=== PATIENT | female | born 1970 | race Caucasian/White ===

== ENCOUNTER 2019-04-10 05:58 | Day surgery (SDC) | payer OTHER ==
[~2019-04-10] VITALS: Ht 167.6 cm; Wt 73.9 kg
[2019-04-10] MEDS ORDERED: BUPIVACAINE-MPF/EPI 0.25% 30 ML VIAL INJ ONE (08:58)
[2019-04-10] MEDS ORDERED: HYDROmorphone PFS 2 MG/ML SYR ONE (09:09)
[2019-04-10] MEDS ORDERED: fentaNYL 0.05 MG/ML VIAL ONE (09:09)
[2019-04-10] MEDS ORDERED: DEXAMETHASONE 4 MG/ML VIAL ONE (09:18)
[2019-04-10] MEDS ORDERED: NEOSTIGMINE 1:1000 10 MG/10 ML VIAL ONE (09:18)
[2019-04-10] MEDS ORDERED: ROCURONIUM 50 MG/5 ML VIAL IV ONE (09:18)
[2019-04-10] MEDS ORDERED: PROPOFOL 200 MG/20 ML VIAL IV ONE (09:18)
[2019-04-10] MEDS ORDERED: SEVOFLURANE 250 ML BTL INH ONE (09:18)
[2019-04-10] MEDS ORDERED: ONDANSETRON 4 MG/2 ML VIAL ONE (09:18)
[2019-04-10] MEDS ORDERED: GLYCOPYRROLATE 0.2 MG/ML VIAL ONE (09:18)
[2019-04-10] MEDS ORDERED: KETOROLAC 30 MG/ML VIAL ONE (09:18)
[2019-04-10] MEDS ORDERED: ONDANSETRON 4 MG/2 ML VIAL IVP PRN ×2 (10:25→10:30)
[2019-04-10] MEDS ORDERED: HYDROmorphone 1 MG/ML AMP IVP PRN ×2 (10:25→10:30)
[2019-04-10] MEDS ORDERED: HYDROcodone/APAP 5/325 MG 1 TAB TAB PO PRN (10:30)
[2019-04-10] MEDS ORDERED: MORPHINE SULFATE 2 MG/ML SYR IVP PRN (10:30)
[2019-04-10] MEDS ORDERED: MORPHINE SULFATE 4 MG/ML SYR IV PRN (10:30)
== END 2019-04-10 12:15 | disposition home or self-care (01) ==
LOC: MDS 05:58 → MMU 05:59 → MDS 12:15
PROVIDERS: ATTEND Surgery
DX: K80.10 Calculus of gallbladder with chronic cholecystitis without obstruction (principal)
CPT/HCPCS: 47562; 71045; 82374; J0690; J1100; J1170; J1885; J2405; J2704; J2710; J3010; J3490; J7030; J7060; J7120